=== PATIENT | male | born 1965 | race Caucasian/White ===

== ENCOUNTER 2016-07-02 14:51 | Observation (INO) | payer OTHER ==
[~2016-07-02] VITALS: Ht 165.1 cm; Wt 90.8 kg
[~2016-07-02 14:51] MED LIST: NO HOME MEDS
--- NOTE | 2016-07-02 14:51 | NUR ---
PT ARRIVES VIA EMS RED AND DIAHORETIC. PT HAD BEEN "OUTSIDE AT FIELD DAY , BECAME VERY HOT AND HAD SUDDEN ONSET SEVERE MIDSTERNAL CP THAT RADIATED ACROSS CHEST
--- NOTE | 2016-07-02 15:51 | NUR ---
PT RESTING QUIETLY STATES PAIN "IS ALMOST GONE" . DENIES N/V. VSS. AT BEDSIDE
[2016-07-02 15:59] LABS: HEMATOCRIT 41.7 % (39.0-50.0); HEMOGLOBIN 14.8 g/dl (14.0-18.0); IMMATURE GRANULOCYTES 1.1 % (0.0-1.0); MEAN CELL VOLUME 83.7 fL CALC (80.0-100.0); MEAN CORPUSCULAR HGB 29.7 pG CALC (26.0-32.0); MEAN CORPUSCULAR HGB CONC 35.5 g/L CALC (32.0-36.0); NEUT# 5.34 thou/uL (1.82-7.42); RED BLOOD COUNT 4.98 mill/uL (4.70-6.10)
--- NOTE | 2016-07-02 16:22 | NUR ---
VSS. STATES PAIN IS RESOLVED. AWARE OF WATCHFUL WAITING.
[2016-07-02 16:47] LABS: ALBUMIN 3.9 g/dL (3.2-5.0); ALKALINE PHOSPHATASE 63 u/l (38-126); AMYLASE 46 u/l (30-110); ANION GAP 14 (6-22 (CALC)); BILIRUBIN, TOTAL 0.7 mg/dL (0.0-1.4); BUN 20 mg/dL (9-20); BUN/CREATININE RATIO 19 (12-20 (CALC)); CALCIUM 8.8 mg/dL (8.4-10.2); CARBON DIOXIDE 22 mmol/l (22-30); CHLORIDE 112 mmol/l (95-108); CREATININE 1.1 mg/dL (0.7-1.3); GFR > 60 ML/MIN (>=60 (CALC)); GFR FOR AFR.AMER. > 60 ML/MIN (>=60 (CALC)); GLUCOSE 73 mg/dL (75-110); LIPASE 59 u/l (23-300); POTASSIUM 4.2 mmol/l (3.5-5.1); SGOT/AST 31 u/l (17-59); SGPT/ALT 47 u/l (21-72); SODIUM 144 mmol/l (137-146); TOTAL PROTEIN 6.6 g/dL (6.3-8.2)
[2016-07-02 16:58] LABS: MYOGLOBIN 178 ng/mL (0 - 121)
--- NOTE | 2016-07-02 17:22 | NUR ---
PT STATES CP RESOLVED. VSS. SKIN PWD.
--- NOTE | 2016-07-02 18:03 | NUR ---
PT GIVEN MEAL TRAY, SITTING UP AT BEDSIDE. PT AWARE OF IMPENDING ADMIT AND DELAY IN TRANSFERING TO FLOOR UNTIL ONCOMING SHIFT IS HERE. VSS. PT PINK WARM AND DRY.
--- NOTE | 2016-07-02 18:54 | NUR ---
CALLED REPORT TO VANE COTTON
--- NOTE | 2016-07-02 19:31 | NUR ---
TRANSPORTED VIA WHEELCHAIR WITH TELEMETRY
[2016-07-02 19:35] VITALS: BP 139/84
--- NOTE | 2016-07-02 19:35 | NUR ---
RECEIVED TO ROOM 284 VIA W/C ACCOMPANIED BY MARU BECKER, AMBULATING TO STANDING SCALE THEN TO BED WITH STEADY GAIT. A/O X3, RESPIRATIONS EVEN AND UNLABORED, DENIES CHEST PAIN. TELE IN PLACE. LR STARTED TO LAC AT 125CC/HR. ENCOURAGED TO USE CALL LIGHT FOR ASSISTANCE, WILL CONTINUE TO MONITOR.
[2016-07-02 23:30] VITALS: BP 104/68
--- NOTE | 2016-07-03 | NUR ---
RESTING IN BED WITH EYES CLOSED RESPIRAITONS EVEN AND UNLABORED.
[2016-07-03 04:15] VITALS: BP 113/84
--- NOTE | 2016-07-03 05:51 | NUR ---
RESTING WITH EYES CLOSED RESPIRATIONS EVEN AND UNLABORED, RESPONDS EASILY TO VERBAL COMMAND, DENIES CHEST PAIN. IV FLUIDS INFUSING TO LAC WITH NO COMPLICATIONS.
--- NOTE | 2016-07-03 07:00 | NUR ---
RECEIVED BEDSIDE REPORT FROM VANE BAARCA. PT IN HIGH FOWLERS WITH EYES OPEN. RESPS EVEN AND UNLABORED ON ROOM AIR, TELE MONITOR IN PLACE. DENIES PAIN OR DISCOMFORT AT THIS TIME. VOICES NO NEEDS AT THIS TIME. PLAN OF CARE DISCUSSED. SAFETY PRECAUTIONS REINFORCED. BED IN LOWEST POSITION WITH WHEELS LOCKED. CALL LIGHT WITHIN REACH. ENCOURAGED PT TO CALL FOR ANY NEEDS.
[2016-07-03 07:02] LABS: ANION GAP 13 (6-22 (CALC)); BUN 15 mg/dL (9-20); BUN/CREATININE RATIO 16 (12-20 (CALC)); CALCIUM 8.8 mg/dL (8.4-10.2); CALCULATED LDLCHOLESTEROL 125 mg/dL (62-129 (CALC)); CARBON DIOXIDE 24 mmol/l (22-30); CHLORIDE 108 mmol/l (95-108); GFR > 60 ML/MIN (>=60 (CALC)); GFR FOR AFR.AMER. > 60 ML/MIN (>=60 (CALC)); GLUCOSE 88 mg/dL (75-110); HDL CHOLESTEROL 27 mg/dL (>=40); POTASSIUM 4.5 mmol/l (3.5-5.1); SODIUM 141 mmol/l (137-146); TOTAL CHOLESTEROL 176 mg/dl (0-199); TRIGLYCERIDES REFLEX TO dLDL 122 mg/dl (30-149); VLDL CHOLESTROL 24 mg/dl (8-62 (CALC))
[2016-07-03 07:51] VITALS: BP 135/86
--- NOTE | 2016-07-03 08:10 | NUR ---
MEDICATED WITH TYLENOL PO FOR C/O 04/30 HEADACHE.
--- NOTE | 2016-07-03 10:05 | NUR ---
DR CANTOR IN WITH PT, NEW ORDERS RECEIVED.
[2016-07-03] MEDS ORDERED: ASPIRIN CHEWABL81 MG PO (10:33)
--- NOTE | 2016-07-03 11:11 | NUR ---
Discharge instructions given. Patient verbalizes understanding of same. Discharged in stable condition via Ambulatory to Home with spouse. All belongings sent with pt.
== END 2016-07-03 11:10 | disposition home or self-care (01) | DRG 313 ==
LOC: ENPENDDIS → ED 14:51 → ED-I 15:33 → ED 15:33 → ED-I 17:02 → ED 17:23 → MS2 17:24
PROVIDERS: Emergency Medicine; ADMIT Internal Medicine; ATTEND Internal Medicine
DX: R07.9 Chest pain, unspecified (principal); R06.02 Shortness of breath
CPT/HCPCS: G0378

== ENCOUNTER 2019-07-06 08:30 | Emergency (ER) | payer OTHER ==
[~2019-07-06 08:30] MED LIST changes: +ASPIRIN CHEWABL81 MG PO
[2019-07-06 08:39] VITALS: BP 152/85
[2019-07-06] MEDS ORDERED: CEPHALEXIN500 M1 PO (08:41)
[2019-07-06] MEDS ORDERED: LOSARTAN POTASS25 MG PO (10:01)
[2019-07-06] MEDS ORDERED: CELECOXIB200 MG PO (10:01)
[2019-07-06] MEDS ORDERED: ATORVASTATIN CA10 MG PO (10:02)
== END 2019-07-06 10:33 | disposition home or self-care (01) | DRG 605 ==
LOC: ED 08:30
PROC: 0HQFXZZ Repair Right Hand Skin, External Approach (ICD-10-PCS; principal; 2019-07-06)
DX: S61.411A Laceration without foreign body of right hand, initial encounter (principal); W26.1XXA Contact with sword or dagger, initial encounter; Y92.009 Unspecified place in unspecified non-institutional (private) residence as the place of occurrence of the external cause